=== PATIENT | male | born 1980 | race Caucasian/White ===

== ENCOUNTER 2021-04-05 20:11 | Emergency (ER) | payer SELFPAY ==
[~2021-04-05] VITALS: Ht 170.2 cm; Wt 83.8 kg
[2021-04-05 20:35] VITALS: BP 137/71
[2021-04-05] MEDS ORDERED: LISI10TA26 MT (20:48)
[2021-04-05] MEDS ORDERED: METFORMIN (20:48)
[2021-04-05] MEDS ORDERED: ATORVASTATIN (20:49)
[2021-04-05] MEDS ORDERED: FLUORESCEIN SODIUM 1MG/STRIP RIGHTEYE ONE (21:45)
[2021-04-05] MEDS ORDERED: TETRACAINE 0.5% OPHTH DROPS 4ML RIGHTEYE ONE (21:45)
[2021-04-05] MEDS ORDERED: ERYTHROMYCIN BASE 0.5% OPHTH OINT 3.5GM RIGHTEYE ONE (22:15)
[2021-04-05] MEDS ORDERED: IBUPROFEN 600MG TABLET PO ONE (22:15)
[2021-04-05] MEDS ORDERED: ERYT1OIN6 RIGHTEYE (22:20)
[2021-04-05] MEDS ORDERED: IBUP-2029 MT (22:20)
== END 2021-04-05 23:18 | disposition home or self-care (01) ==
LOC: ER 20:11
DX: S05.01XA Injury of conjunctiva and corneal abrasion without foreign body, right eye, initial encounter (principal); X58.XXXA Exposure to other specified factors, initial encounter; Y93.89 Activity, other specified; Y92.89 Other specified places as the place of occurrence of the external cause; H00.011 Hordeolum externum right upper eyelid; I10 Essential (primary) hypertension
CPT/HCPCS: 99283

== ENCOUNTER → 2024-08-04 | Outpatient (CLI) | payer BC ==
[~2024-08-04] MED LIST: ATORVASTATIN; ERYT1OIN6 RIGHTEYE; IBUP-2029 MT; LISI10TA26 MT; METFORMIN
== END | disposition home or self-care (01) ==
LOC: US 08:51
PROVIDERS: ATTEND Internal Medicine Critical Care Medicine
DX: R10.11 Right upper quadrant pain (principal)
CPT/HCPCS: 76705